=== PATIENT | female | born 1940 | race Two or more races ===

== ENCOUNTER 2019-02-01 10:37 | Inpatient (IN) | payer MEDICARE, OTHER ==
[2019-02-01] VITALS (48 sets, daily range): BP systolic 52–154; BP diastolic 36–89
[~2019-02-01] VITALS: Ht 167.6 cm; Wt 61.7 kg
[~2019-02-01 10:37] MED LIST: ALEN70TA3 PO; ARIP10TA9 PO; CITA20TA16 PO; DOCU-277 PO; LISI40TA4 PO; ZOLP5TAB2 PO
[2019-02-01 10:55] LABS: BASOPHILS % (AUTO) 0.1 % (0.0-2.0); HEMATOCRIT 41 % (33-45); HEMOGLOBIN 13.2 g/dL (11.5-14.8); LYMPHOCYTES # (AUTO) 1.9 /CMM (0.8-4.8); MEAN CORPUSCULAR HGB CONC 32 g/dl (31.0-36.0); MEAN CORPUSCULAR VOLUME 86 fL (82-100); MONOCYTES # (AUTO) 0.6 /CMM (0.1-1.30); MONOCYTES % (AUTO) 2.3 % (2.0-12.0); NEUTROPHILS # (AUTO) 24.4 /CMM (1.8-8.9); NEUTROPHILS % (AUTO) 90.6 % (43.0-81.0); PLATELET COUNT (AUTO) 334 /CMM (150-450); RED BLOOD CELL COUNT(AUTO) 4.79 MIL/uL (4.0-5.2); WHITE BLOOD COUNT (AUTO) 26.9 K/uL (4.3-11.0)
[2019-02-01] MEDS ORDERED: ETOMIDATE 2 MG/ML VIAL IV ONE (11:00)
[2019-02-01] MEDS ORDERED: IV NS 0.9% 1,000 ML BAG IV ONE ×2 (11:00→12:00)
[2019-02-01] MEDS ORDERED: ROCURONIUM BROMIDE 100 MG/10 ML VIAL IV ONE (11:00)
[2019-02-01 11:08] LABS: CALCIUM, SERUM 8.9 mg/dL (8.5-10.1); CARBON DIOXIDE 22 mmol/L (21-32); CHLORIDE 108 mmol/L (98-107); CREATININE 1.5 mg/dL (0.6-1.3); GLUCOSE 148 mg/dL (74-106); SODIUM SERUM 142 mmol/L (136-145); UREA NITROGEN, BLOOD 34 mg/dL (7-18)
[2019-02-01 11:21] LABS: ALANINE AMINOTRANSFERASE 9 U/L (12-78); ALBUMIN 3.1 g/dL (3.4-5.0); ALKALINE PHOSPHATASE 68 U/L (46-116); ASPARTATE AMINOTRANSFERASE 19 U/L (15-37); B-TYPE NATRIURETIC PEPTIDE 2140 PG/ML (0-125); BILIRUBIN,DIRECT 0.2 mg/dL (0.0-0.2); BILIRUBIN,TOTAL 0.6 mg/dL (0.2-1.0)
[2019-02-01] MEDS ORDERED: ATEN50TA PO (11:22)
[2019-02-01] MEDS ORDERED: LEVOFLOXACIN 750 MG /D5W 150ML 150 ML IV ONE ×2 (12:00→12:11)
[2019-02-01] MEDS ORDERED: PIPERACILLIN /TAZOBACTAM 3.375 G in IV D5W 50 ML IV ONE (12:00)
[2019-02-01] MEDS ORDERED: PIPERACILLIN /TAZOBACTAM 3.375 G VIAL IV ONE (12:11)
[2019-02-01 13:55] LABS: APPEARANCE,URINE Cloudy (CLEAR); BILIRUBIN,URINE Negative (NEGATIVE); BLOOD, URINE Moderate Ery/uL (NEGATIVE); COLOR,URINE Yellow (YELLOW); KETONES,URINE Negative (NEGATIVE); LEUKOCYTE ESTERASE ,URINE Large (NEGATIVE); NITRITE, URINE Negative (NEGATIVE); PROTEIN,URINE 100 mg/dl (NEGATIVE); UGLUCOSE Negative (NEGATIVE); UROBILINOGEN,URINE 0.2 EU/dL (0.2)
[2019-02-01 13:56] LABS: BACTERIA,URINE 2+ /HPF (None Seen); SQUAMOUS EPITHELIAL CELL,UR Few /HPF (None Seen); WBC,URINE 51-80 /HPF (0-3)
[2019-02-01] MEDS ORDERED: HYDROCODONE/APAP 5/325MG 1 EACH TABLET PO PRN (14:30)
[2019-02-01] MEDS ORDERED: ZOLPIDEM TARTRATE 5 MG TABLET PO PRN (14:30)
[2019-02-01] MEDS ORDERED: ONDANSETRON HCL/PF 4 MG/2 ML VIAL IVP PRN (14:30)
[2019-02-01] MEDS ORDERED: ACETAMINOPHEN 325 MG TABLET PO PRN (14:30)
[2019-02-01] MEDS ORDERED: MAGNESIUM HYDROXIDE 30 ML UDC PO PRN (14:30)
[2019-02-01] MEDS ORDERED: FEE PK DOSING 1 MIN EA MC ONE (14:35)
[2019-02-01 14:44] LABS: ABG BASE EXCESS -10.7 mmol/L; ABG OXYGEN SATURATION 92.9 % (92.0-98.5); ABG PCO2 40.2 mmHg (35.0-45.0); ABG PH 7.227 (7.350-7.450); ABG PO2 79.2 mmHg (75.0-100.0); AaDO2 593.6 mmHg; COHb 0.7 % (0.5-1.5); MetHb 0.1 % (0.0-1.5); O2Hb 92.2 % (94.0-97.0); PEEP,BG 5 cm H2O; SITE, ABG Right Radial; VT, ABG 400 mL
[2019-02-01] MEDS: HEPARIN SODIUM, PORCINE 5000 UNITS/1 ML VIAL SQ SCH ×2 (14:45→21:02)
[2019-02-01] MEDS: IV NS 0.9% 1,000 ML IV PRN (14:48)
[2019-02-01] MEDS ORDERED: IV NS 0.9% 1,000 ML IV PRN (15:00)
[2019-02-01] MEDS ORDERED: NOREPINEPHRINE 8 MG in IV D5W 500 ML IV PRN (15:00)
[2019-02-01] MEDS: NOREPINEPHRINE 8 MG in IV D5W 500 ML IV PRN (15:25)
[2019-02-01] MEDS: VANCOMYCIN 1 GM in IV D5W 250 ML IV SCH (15:31)
[2019-02-01] MEDS ORDERED: PROPOFOL 100 ML IV PRN (17:00)
[2019-02-01] MEDS: PROPOFOL 100 ML IV PRN ×2 (17:55→23:55)
[2019-02-01] MEDS: MORPHINE SULFATE INJ 2 MG/ML DISP.SYRIN IV PRN (19:22)
[2019-02-01] MEDS: PIPERACILLIN /TAZOBACTAM 2.25 G in IV D5W 50 ML IV SCH (20:57)
[2019-02-02] VITALS (97 sets, daily range): BP systolic 82–148; BP diastolic 40–99
[2019-02-02] MEDS: IV NS 0.9% 1,000 ML IV PRN ×2 (03:01→09:47)
[2019-02-02 04:47] LABS: BASOPHILS % (AUTO) 0.5 % (0.0-2.0); EOSINOPHILS % (AUTO) 0.1 % (0.0-6.0); HEMATOCRIT 35 % (33-45); HEMOGLOBIN 11.4 g/dL (11.5-14.8); LYMPHOCYTES # (AUTO) 0.8 /CMM (0.8-4.8); LYMPHOCYTES % (AUTO) 8.2 % (20.0-44.0); MEAN CORPUSCULAR HGB CONC 33 g/dl (31.0-36.0); MEAN CORPUSCULAR VOLUME 86 fL (82-100); MONOCYTES # (AUTO) 0.5 /CMM (0.1-1.30); MONOCYTES % (AUTO) 5.4 % (2.0-12.0); NEUTROPHILS % (AUTO) 85.8 % (43.0-81.0); PLATELET COUNT (AUTO) 249 /CMM (150-450); RED BLOOD CELL COUNT(AUTO) 4.06 MIL/uL (4.0-5.2); WHITE BLOOD COUNT (AUTO) 9.3 K/uL (4.3-11.0)
[2019-02-02] MEDS: PIPERACILLIN /TAZOBACTAM 2.25 G in IV D5W 50 ML IV SCH ×3 (04:58→19:40)
[2019-02-02 05:04] LABS: CALCIUM, SERUM 7.5 mg/dL (8.5-10.1); CARBON DIOXIDE 20 mmol/L (21-32); CHLORIDE 109 mmol/L (98-107); CREATININE 1.5 mg/dL (0.6-1.3); GLUCOSE 110 mg/dL (74-106); MAGNESIUM 1.4 mg/dL (1.8-2.4); PHOSPHORUS 3.4 mg/dL (2.5-4.9); POTASSIUM 3.6 mmol/L (3.5-5.1); SODIUM SERUM 140 mmol/L (136-145); UREA NITROGEN, BLOOD 36 mg/dL (7-18)
[2019-02-02 05:15] LABS: CHOLESTEROL 83 mg/dL (<200); HDL CHOLESTEROL 39 mg/dL (40-60); LDL 38 mg/dL (0-99); TRIGLYCERIDES 52 mg/dL (30-150)
[2019-02-02] MEDS: PROPOFOL 100 ML IV PRN ×2 (07:17→17:40)
[2019-02-02 08:40] LABS: ABG BASE EXCESS -8.8 mmol/L; ABG OXYGEN SATURATION 96.3 % (92.0-98.5); ABG PCO2 30.9 mmHg (35.0-45.0); ABG PH 7.332 (7.350-7.450); ABG PO2 85.1 mmHg (75.0-100.0); AaDO2 308.7 mmHg; COHb 0.4 % (0.5-1.5); MetHb 0.3 % (0.0-1.5); O2Hb 95.6 % (94.0-97.0); PEEP,BG 8 cm H2O; SITE, ABG Right Radial
[2019-02-02] MEDS: HEPARIN SODIUM, PORCINE 5000 UNITS/1 ML VIAL SQ SCH ×2 (08:45→21:32)
[2019-02-02] MEDS: Z GUARD REMEDY 2 OZ OINT TP PRN (08:46)
[2019-02-02] MEDS ORDERED: IV NS 0.9% 500 ML IV ONE (09:30)
[2019-02-02] MEDS ORDERED: HYDROGEL DRESSING 90 GM TUBE TP PRN (09:30)
[2019-02-02] MEDS: Magnesium 1GM/D5W 100ML PREMIX 100 ML IV SCH ×2 (09:59→11:00)
[2019-02-02] MEDS: HYDROGEL DRESSING 90 GM TUBE TP SCH (11:43)
[2019-02-02] MEDS: MORPHINE SULFATE INJ 2 MG/ML DISP.SYRIN IV PRN (12:39)
[2019-02-02] MEDS: VANCOMYCIN 1 GM in IV D5W 250 ML IV SCH (15:35)
[2019-02-02] MEDS: NOREPINEPHRINE 8 MG in IV D5W 500 ML IV PRN (15:36)
[2019-02-03] VITALS (44 sets, daily range): BP systolic 89–138; BP diastolic 42–83
[2019-02-03] MEDS: IV NS 0.9% 1,000 ML IV PRN ×3 (01:17→22:14)
[2019-02-03] MEDS: PROPOFOL 100 ML IV PRN (01:40)
[2019-02-03] MEDS: PIPERACILLIN /TAZOBACTAM 2.25 G in IV D5W 50 ML IV SCH ×2 (03:17→12:12)
[2019-02-03 04:28] LABS: CALCIUM, SERUM 7.6 mg/dL (8.5-10.1); CREATININE 1.2 mg/dL (0.6-1.3); MAGNESIUM 2.1 mg/dL (1.8-2.4); POTASSIUM 3.3 mmol/L (3.5-5.1)
[2019-02-03 08:36] LABS: ABG BASE EXCESS -6.9 mmol/L; ABG OXYGEN SATURATION 97.2 % (92.0-98.5); ABG PCO2 29.5 mmHg (35.0-45.0); ABG PH 7.381 (7.350-7.450); ABG PO2 102.2 mmHg (75.0-100.0); AaDO2 149.1 mmHg; COHb 0.3 % (0.5-1.5); MetHb 0.3 % (0.0-1.5); O2Hb 96.6 % (94.0-97.0); SITE, ABG Right Radial
[2019-02-03] MEDS: HYDROGEL DRESSING 90 GM TUBE TP SCH (08:42)
[2019-02-03] MEDS: POTASSIUM CL. PREMIX PERIPHER. 50 ML IV SCH ×2 (08:44→09:43)
[2019-02-03] MEDS: HEPARIN SODIUM, PORCINE 5000 UNITS/1 ML VIAL SQ SCH ×2 (08:45→21:05)
[2019-02-03 08:48] LABS: BASOPHILS % (AUTO) 0.2 % (0.0-2.0); EOSINOPHILS % (AUTO) 0.3 % (0.0-6.0); HEMATOCRIT 29 % (33-45); HEMOGLOBIN 9.7 g/dL (11.5-14.8); LYMPHOCYTES # (AUTO) 0.6 /CMM (0.8-4.8); LYMPHOCYTES % (AUTO) 5.8 % (20.0-44.0); MEAN CORPUSCULAR HGB CONC 34 g/dl (31.0-36.0); MEAN CORPUSCULAR VOLUME 84 fL (82-100); MONOCYTES # (AUTO) 0.5 /CMM (0.1-1.30); MONOCYTES % (AUTO) 4.9 % (2.0-12.0); NEUTROPHILS # (AUTO) 8.9 /CMM (1.8-8.9); NEUTROPHILS % (AUTO) 88.8 % (43.0-81.0); PLATELET COUNT (AUTO) 179 /CMM (150-450); RED BLOOD CELL COUNT(AUTO) 3.44 MIL/uL (4.0-5.2); WHITE BLOOD COUNT (AUTO) 10.1 K/uL (4.3-11.0)
[2019-02-03] MEDS ORDERED: HYDROCODONE/APAP 5/325MG 1 EACH TABLET GT PRN (11:48)
[2019-02-03] MEDS ORDERED: ZOLPIDEM TARTRATE 5 MG TABLET GT PRN (11:48)
[2019-02-03] MEDS ORDERED: PHARMACY TO CHANGE PO MEDS TO GT/NG XX PRN (12:00)
[2019-02-03] MEDS ORDERED: BISACODYL SUPP (10 MG) 10 MG/SUPP.RECT SUPP.RECT RC PRN (12:00)
[2019-02-03 19:43] LABS: OCCULT BLOOD STOOL NEGATIVE (NEGATIVE)
[2019-02-03] MEDS: CEFEPIME 1 GM in IV D5W 50 ML IV SCH (20:03)
[2019-02-03] MEDS: MAGNESIUM HYDROXIDE 30 ML UDC GT SCH (23:24)
[2019-02-04] VITALS (27 sets, daily range): BP systolic 101–150; BP diastolic 36–87
[2019-02-04 04:22] LABS: BASOPHILS % (AUTO) 0.1 % (0.0-2.0); HEMATOCRIT 31 % (33-45); HEMOGLOBIN 10.2 g/dL (11.5-14.8); LYMPHOCYTES # (AUTO) 0.8 /CMM (0.8-4.8); MEAN CORPUSCULAR HGB CONC 33 g/dl (31.0-36.0); MEAN CORPUSCULAR VOLUME 84 fL (82-100); MONOCYTES # (AUTO) 0.4 /CMM (0.1-1.30); MONOCYTES % (AUTO) 2.8 % (2.0-12.0); NEUTROPHILS # (AUTO) 11.8 /CMM (1.8-8.9); NEUTROPHILS % (AUTO) 91.1 % (43.0-81.0); PLATELET COUNT (AUTO) 171 /CMM (150-450); RED BLOOD CELL COUNT(AUTO) 3.69 MIL/uL (4.0-5.2); WHITE BLOOD COUNT (AUTO) 12.9 K/uL (4.3-11.0)
[2019-02-04 04:38] LABS: CALCIUM, SERUM 7.6 mg/dL (8.5-10.1); CREATININE 0.8 mg/dL (0.6-1.3); PHOSPHORUS 2.1 mg/dL (2.5-4.9); POTASSIUM 3.2 mmol/L (3.5-5.1)
[2019-02-04] MEDS ORDERED: POTASSIUM CHLORIDE 20 MEQ TAB.PRT.SR PO ONE (08:00)
[2019-02-04] MEDS ORDERED: NEUTRA PHOS 1 POWD.PACKET PO ONE (08:00)
[2019-02-04] MEDS: HEPARIN SODIUM, PORCINE 5000 UNITS/1 ML VIAL SQ SCH ×2 (08:19→21:01)
[2019-02-04] MEDS: CEFEPIME 1 GM in IV D5W 50 ML IV SCH ×2 (08:19→21:00)
[2019-02-04] MEDS: HYDROGEL DRESSING 90 GM TUBE TP SCH (08:20)
[2019-02-04] MEDS: Z GUARD REMEDY 2 OZ OINT TP PRN (08:20)
[2019-02-04] MEDS: IV NS 0.9% 1,000 ML IV PRN (08:33)
[2019-02-04 08:51] LABS: ABG BASE EXCESS -8.3 mmol/L; ABG OXYGEN SATURATION 98.1 % (92.0-98.5); ABG PCO2 25.3 mmHg (35.0-45.0); ABG PH 7.394 (7.350-7.450); ABG PO2 134.7 mmHg (75.0-100.0); AaDO2 121.4 mmHg; MetHb 0.4 % (0.0-1.5); O2Hb 97.7 % (94.0-97.0); SITE, ABG Right Radial
[2019-02-04 11:07] LABS: ABG BASE EXCESS -6.6 mmol/L; ABG OXYGEN SATURATION 96.7 % (92.0-98.5); ABG PCO2 26.4 mmHg (35.0-45.0); ABG PH 7.417 (7.350-7.450); AaDO2 90.9 mmHg; COHb 0.2 % (0.5-1.5); MetHb 0.2 % (0.0-1.5); O2Hb 96.3 % (94.0-97.0); PEEP,BG 5 cm H2O; SITE, ABG Right Radial; VT, ABG 450 mL
[2019-02-04] MEDS: IV D5/0.45 NACL 1,000 ML IV PRN ×2 (12:09→22:00)
[2019-02-04] MEDS: MAGNESIUM HYDROXIDE 30 ML UDC GT SCH (22:00)
[2019-02-05] VITALS (26 sets, daily range): BP systolic 102–161; BP diastolic 49–100
[2019-02-05 04:17] LABS: BASOPHILS % (AUTO) 0.1 % (0.0-2.0); EOSINOPHILS % (AUTO) 0.4 % (0.0-6.0); HEMATOCRIT 29 % (33-45); HEMOGLOBIN 9.9 g/dL (11.5-14.8); LYMPHOCYTES # (AUTO) 1.1 /CMM (0.8-4.8); LYMPHOCYTES % (AUTO) 9.8 % (20.0-44.0); MEAN CORPUSCULAR HGB CONC 34 g/dl (31.0-36.0); MEAN CORPUSCULAR VOLUME 84 fL (82-100); MONOCYTES # (AUTO) 0.7 /CMM (0.1-1.30); NEUTROPHILS # (AUTO) 9.3 /CMM (1.8-8.9); NEUTROPHILS % (AUTO) 83.7 % (43.0-81.0); PLATELET COUNT (AUTO) 172 /CMM (150-450); RED BLOOD CELL COUNT(AUTO) 3.48 MIL/uL (4.0-5.2); WHITE BLOOD COUNT (AUTO) 11.1 K/uL (4.3-11.0)
[2019-02-05 04:28] LABS: ALBUMIN 1.7 g/dL (3.4-5.0); ALKALINE PHOSPHATASE 45 U/L (46-116); ASPARTATE AMINOTRANSFERASE 18 U/L (15-37); BILIRUBIN,TOTAL 0.5 mg/dL (0.2-1.0); CALCIUM, SERUM 7.6 mg/dL (8.5-10.1); CARBON DIOXIDE 22 mmol/L (21-32); CHLORIDE 112 mmol/L (98-107); CREATININE 0.7 mg/dL (0.6-1.3); GLUCOSE 151 mg/dL (74-106); MAGNESIUM 1.9 mg/dL (1.8-2.4); POTASSIUM 3.3 mmol/L (3.5-5.1); SODIUM SERUM 142 mmol/L (136-145); TOTAL PROTEIN, SERUM 5.1 g/dL (6.4-8.2); UREA NITROGEN, BLOOD 21 mg/dL (7-18)
[2019-02-05 04:38] LABS: PHOSPHORUS 1.1 mg/dL (2.5-4.9)
[2019-02-05 04:41] LABS: ALANINE AMINOTRANSFERASE < 6 U/L (12-78)
[2019-02-05] MEDS: IV D5/0.45 NACL 1,000 ML IV PRN ×2 (07:51→17:19)
[2019-02-05] MEDS: CEFEPIME 1 GM in IV D5W 50 ML IV SCH ×2 (08:55→20:23)
[2019-02-05] MEDS: HEPARIN SODIUM, PORCINE 5000 UNITS/1 ML VIAL SQ SCH ×2 (08:56→20:24)
[2019-02-05] MEDS: HYDROGEL DRESSING 90 GM TUBE TP SCH (08:57)
[2019-02-05] MEDS ORDERED: NEUTRA PHOS 1 POWD.PACKET GT ONE (09:30)
[2019-02-05] MEDS ORDERED: POTASSIUM CHLORIDE 20 MEQ POWDER PACKET GT SCH (09:30)
[2019-02-05] MEDS: MORPHINE SULFATE INJ 2 MG/ML DISP.SYRIN IV PRN (17:14)
[2019-02-05] MEDS: MAGNESIUM HYDROXIDE 30 ML UDC GT SCH (21:24)
[2019-02-06] VITALS (25 sets, daily range): BP systolic 110–161; BP diastolic 50–95
[2019-02-06] MEDS: IV D5/0.45 NACL 1,000 ML IV PRN ×2 (03:56→15:05)
[2019-02-06 04:04] LABS: BASOPHILS % (AUTO) 0.4 % (0.0-2.0); EOSINOPHILS % (AUTO) 1.7 % (0.0-6.0); HEMATOCRIT 28 % (33-45); HEMOGLOBIN 9.2 g/dL (11.5-14.8); LYMPHOCYTES # (AUTO) 1.4 /CMM (0.8-4.8); LYMPHOCYTES % (AUTO) 21.6 % (20.0-44.0); MEAN CORPUSCULAR HGB CONC 33 g/dl (31.0-36.0); MEAN CORPUSCULAR VOLUME 84 fL (82-100); MONOCYTES # (AUTO) 0.9 /CMM (0.1-1.30); NEUTROPHILS % (AUTO) 62.3 % (43.0-81.0); PLATELET COUNT (AUTO) 163 /CMM (150-450); RED BLOOD CELL COUNT(AUTO) 3.31 MIL/uL (4.0-5.2); WHITE BLOOD COUNT (AUTO) 6.3 K/uL (4.3-11.0)
[2019-02-06 04:15] LABS: CALCIUM, SERUM 7.3 mg/dL (8.5-10.1); CARBON DIOXIDE 24 mmol/L (21-32); CHLORIDE 111 mmol/L (98-107); CREATININE 0.5 mg/dL (0.6-1.3); GLUCOSE 134 mg/dL (74-106); MAGNESIUM 1.6 mg/dL (1.8-2.4); PHOSPHORUS 1.4 mg/dL (2.5-4.9); POTASSIUM 3.4 mmol/L (3.5-5.1); SODIUM SERUM 141 mmol/L (136-145); UREA NITROGEN, BLOOD 15 mg/dL (7-18)
[2019-02-06] MEDS ORDERED: Sodium Phosphate 7.5 MMOL in IV D5W 100 ML IV ONE (08:30)
[2019-02-06] MEDS: Magnesium 1GM/D5W 100ML PREMIX 100 ML IV SCH ×2 (08:31→09:34)
[2019-02-06] MEDS: CEFEPIME 1 GM in IV D5W 50 ML IV SCH ×2 (08:31→20:55)
[2019-02-06] MEDS: HYDROGEL DRESSING 90 GM TUBE TP SCH (08:32)
[2019-02-06] MEDS: HEPARIN SODIUM, PORCINE 5000 UNITS/1 ML VIAL SQ SCH ×2 (08:33→21:02)
[2019-02-06] MEDS ORDERED: POTASSIUM CHLORIDE 20 MEQ POWDER PACKET NG SCH (09:30)
[2019-02-06 14:10] LABS: ABG OXYGEN SATURATION 97.3 % (92.0-98.5); ABG PCO2 27.6 mmHg (35.0-45.0); ABG PH 7.472 (7.350-7.450); ABG PO2 106.4 mmHg (75.0-100.0); AaDO2 75.1 mmHg; COHb 0.1 % (0.5-1.5); MetHb 0.4 % (0.0-1.5); O2Hb 96.8 % (94.0-97.0); SITE, ABG Right Radial; VENT MODE, BG CPAP 15 +5 30%
[2019-02-06] MEDS: MAGNESIUM HYDROXIDE 30 ML UDC GT SCH (21:00)
[2019-02-07] VITALS (33 sets, daily range): BP systolic 68–187; BP diastolic 38–99
[2019-02-07 04:25] LABS: BASOPHILS % (AUTO) 0.3 % (0.0-2.0); EOSINOPHILS % (AUTO) 2.3 % (0.0-6.0); HEMATOCRIT 30 % (33-45); HEMOGLOBIN 10.4 g/dL (11.5-14.8); LYMPHOCYTES # (AUTO) 1.4 /CMM (0.8-4.8); LYMPHOCYTES % (AUTO) 22.1 % (20.0-44.0); MEAN CORPUSCULAR HGB CONC 34 g/dl (31.0-36.0); MEAN CORPUSCULAR VOLUME 83 fL (82-100); MONOCYTES # (AUTO) 1.2 /CMM (0.1-1.30); NEUTROPHILS # (AUTO) 3.4 /CMM (1.8-8.9); NEUTROPHILS % (AUTO) 55.3 % (43.0-81.0); PLATELET COUNT (AUTO) 218 /CMM (150-450); RED BLOOD CELL COUNT(AUTO) 3.65 MIL/uL (4.0-5.2); WHITE BLOOD COUNT (AUTO) 6.2 K/uL (4.3-11.0)
[2019-02-07 04:35] LABS: ALANINE AMINOTRANSFERASE 9 U/L (12-78); ALBUMIN 1.7 g/dL (3.4-5.0); ALKALINE PHOSPHATASE 58 U/L (46-116); ASPARTATE AMINOTRANSFERASE 19 U/L (15-37); BILIRUBIN,TOTAL 0.4 mg/dL (0.2-1.0); CALCIUM, SERUM 7.5 mg/dL (8.5-10.1); CARBON DIOXIDE 26 mmol/L (21-32); CHLORIDE 109 mmol/L (98-107); CREATININE 0.5 mg/dL (0.6-1.3); GLUCOSE 121 mg/dL (74-106); MAGNESIUM 1.8 mg/dL (1.8-2.4); PHOSPHORUS 1.8 mg/dL (2.5-4.9); POTASSIUM 3.3 mmol/L (3.5-5.1); SODIUM SERUM 141 mmol/L (136-145); TOTAL PROTEIN, SERUM 5.5 g/dL (6.4-8.2); UREA NITROGEN, BLOOD 9 mg/dL (7-18)
[2019-02-07 06:19] LABS: BAND % (MANUAL) 1 % (0.0-5.0); EOSINOPHILS % (MANUAL) 2 % (0-4); LYMPHOCYTES % (MANUAL) 34 % (16-48); MONOCYTES % (MANUAL) 19 % (0-11.0); NEUTROPHILS % (MANUAL) 44 (42-76)
[2019-02-07] MEDS: IV D5/0.45 NACL 1,000 ML IV PRN (06:20)
[2019-02-07] MEDS: CEFEPIME 1 GM in IV D5W 50 ML IV SCH ×2 (09:15→21:00)
[2019-02-07] MEDS: HEPARIN SODIUM, PORCINE 5000 UNITS/1 ML VIAL SQ SCH ×2 (09:15→21:01)
[2019-02-07] MEDS: HYDROGEL DRESSING 90 GM TUBE TP SCH (09:15)
[2019-02-07] MEDS ORDERED: POTASSIUM CHLORIDE 20 MEQ POWDER PACKET GT SCH (09:30)
[2019-02-07] MEDS ORDERED: NEUTRA PHOS 1 POWD.PACKET GT ONE (11:30)
[2019-02-07] MEDS: JEVITY 1.2 CAL 1,000 ML BOTTLE GT PRN (16:09)
[2019-02-07] MEDS: MAGNESIUM HYDROXIDE 30 ML UDC GT SCH (21:00)
[2019-02-07] MEDS: IV NS 0.9% 250 ML IV PRN (21:00)
[2019-02-08] VITALS (24 sets, daily range): BP systolic 90–130; BP diastolic 33–94
[2019-02-08 04:27] LABS: BASOPHILS % (AUTO) 0.4 % (0.0-2.0); EOSINOPHILS % (AUTO) 2.9 % (0.0-6.0); HEMATOCRIT 28 % (33-45); HEMOGLOBIN 9.3 g/dL (11.5-14.8); LYMPHOCYTES # (AUTO) 1.5 /CMM (0.8-4.8); LYMPHOCYTES % (AUTO) 21.4 % (20.0-44.0); MEAN CORPUSCULAR HGB CONC 34 g/dl (31.0-36.0); MEAN CORPUSCULAR VOLUME 84 fL (82-100); MONOCYTES % (AUTO) 14.7 % (2.0-12.0); NEUTROPHILS # (AUTO) 4.2 /CMM (1.8-8.9); NEUTROPHILS % (AUTO) 60.6 % (43.0-81.0); PLATELET COUNT (AUTO) 243 /CMM (150-450); WHITE BLOOD COUNT (AUTO) 6.9 K/uL (4.3-11.0)
[2019-02-08 04:41] LABS: CALCIUM, SERUM 7.4 mg/dL (8.5-10.1); CARBON DIOXIDE 29 mmol/L (21-32); CHLORIDE 111 mmol/L (98-107); CREATININE 0.5 mg/dL (0.6-1.3); GLUCOSE 130 mg/dL (74-106); MAGNESIUM 1.8 mg/dL (1.8-2.4); PHOSPHORUS 2.1 mg/dL (2.5-4.9); POTASSIUM 3.9 mmol/L (3.5-5.1); SODIUM SERUM 145 mmol/L (136-145); UREA NITROGEN, BLOOD 9 mg/dL (7-18)
[2019-02-08] MEDS: CEFEPIME 1 GM in IV D5W 50 ML IV SCH ×2 (09:01→20:30)
[2019-02-08] MEDS: HEPARIN SODIUM, PORCINE 5000 UNITS/1 ML VIAL SQ SCH (09:02)
[2019-02-08] MEDS: HYDROGEL DRESSING 90 GM TUBE TP SCH (09:02)
[2019-02-08] MEDS: Z GUARD REMEDY 2 OZ OINT TP PRN (09:03)
[2019-02-08] MEDS ORDERED: NEUTRA PHOS 1 POWD.PACKET GT ONE (11:00)
[2019-02-08] MEDS: JEVITY 1.2 CAL 1,000 ML BOTTLE GT PRN (16:54)
[2019-02-08] MEDS: MAGNESIUM HYDROXIDE 30 ML UDC GT SCH (21:02)
[2019-02-09] VITALS (27 sets, daily range): BP systolic 42–134; BP diastolic 23–88
[2019-02-09 05:08] LABS: BASOPHILS % (AUTO) 0.2 % (0.0-2.0); EOSINOPHILS % (AUTO) 2.9 % (0.0-6.0); HEMATOCRIT 27 % (33-45); LYMPHOCYTES # (AUTO) 1.3 /CMM (0.8-4.8); LYMPHOCYTES % (AUTO) 17.3 % (20.0-44.0); MEAN CORPUSCULAR HGB CONC 33 g/dl (31.0-36.0); MEAN CORPUSCULAR VOLUME 84 fL (82-100); MONOCYTES # (AUTO) 0.8 /CMM (0.1-1.30); MONOCYTES % (AUTO) 11.3 % (2.0-12.0); NEUTROPHILS # (AUTO) 5.1 /CMM (1.8-8.9); NEUTROPHILS % (AUTO) 68.3 % (43.0-81.0); PLATELET COUNT (AUTO) 295 /CMM (150-450); WHITE BLOOD COUNT (AUTO) 7.5 K/uL (4.3-11.0)
[2019-02-09 05:26] LABS: CALCIUM, SERUM 7.5 mg/dL (8.5-10.1); CARBON DIOXIDE 30 mmol/L (21-32); CHLORIDE 108 mmol/L (98-107); CREATININE 0.5 mg/dL (0.6-1.3); GLUCOSE 129 mg/dL (74-106); MAGNESIUM 1.7 mg/dL (1.8-2.4); PHOSPHORUS 3.9 mg/dL (2.5-4.9); POTASSIUM 3.8 mmol/L (3.5-5.1); SODIUM SERUM 142 mmol/L (136-145); UREA NITROGEN, BLOOD 11 mg/dL (7-18)
[2019-02-09] MEDS: CEFEPIME 1 GM in IV D5W 50 ML IV SCH ×2 (09:16→21:40)
[2019-02-09] MEDS: Z GUARD REMEDY 2 OZ OINT TP PRN (09:17)
[2019-02-09] MEDS: HYDROGEL DRESSING 90 GM TUBE TP SCH (09:17)
[2019-02-09] MEDS: Magnesium 1GM/D5W 100ML PREMIX 100 ML IV SCH ×2 (10:25→11:27)
[2019-02-09] MEDS: ACETAMINOPHEN 650 MG/20.3 ML UDC GT PRN (14:49)
[2019-02-09] MEDS: MAGNESIUM HYDROXIDE 30 ML UDC GT SCH (21:40)
[2019-02-10] VITALS (25 sets, daily range): BP systolic 103–144; BP diastolic 42–100
[2019-02-10 04:12] LABS: BASOPHILS % (AUTO) 0.5 % (0.0-2.0); EOSINOPHILS % (AUTO) 2.5 % (0.0-6.0); HEMATOCRIT 29 % (33-45); HEMOGLOBIN 9.6 g/dL (11.5-14.8); LYMPHOCYTES # (AUTO) 1.4 /CMM (0.8-4.8); LYMPHOCYTES % (AUTO) 16.1 % (20.0-44.0); MEAN CORPUSCULAR HGB CONC 33 g/dl (31.0-36.0); MEAN CORPUSCULAR VOLUME 85 fL (82-100); MONOCYTES # (AUTO) 0.8 /CMM (0.1-1.30); MONOCYTES % (AUTO) 9.6 % (2.0-12.0); NEUTROPHILS # (AUTO) 6.1 /CMM (1.8-8.9); NEUTROPHILS % (AUTO) 71.3 % (43.0-81.0); PLATELET COUNT (AUTO) 350 /CMM (150-450); RED BLOOD CELL COUNT(AUTO) 3.37 MIL/uL (4.0-5.2); WHITE BLOOD COUNT (AUTO) 8.6 K/uL (4.3-11.0)
[2019-02-10 04:28] LABS: CALCIUM, SERUM 7.8 mg/dL (8.5-10.1); CARBON DIOXIDE 34 mmol/L (21-32); CHLORIDE 107 mmol/L (98-107); CREATININE 0.5 mg/dL (0.6-1.3); GLUCOSE 111 mg/dL (74-106); MAGNESIUM 2.1 mg/dL (1.8-2.4); PHOSPHORUS 3.5 mg/dL (2.5-4.9); POTASSIUM 4.1 mmol/L (3.5-5.1); SODIUM SERUM 143 mmol/L (136-145); UREA NITROGEN, BLOOD 13 mg/dL (7-18)
[2019-02-10] MEDS: HYDROGEL DRESSING 90 GM TUBE TP SCH (08:03)
[2019-02-10] MEDS: CEFEPIME 1 GM in IV D5W 50 ML IV SCH ×2 (08:04→21:24)
[2019-02-10] MEDS: IV NS 0.9% 250 ML IV PRN (08:05)
[2019-02-10] MEDS ORDERED: JEVITY 1.2 CAL 1,000 ML BOTTLE GT PRN (12:00)
[2019-02-10] MEDS: Z GUARD REMEDY 2 OZ OINT TP PRN (15:36)
[2019-02-10] MEDS: JEVITY 1.2 CAL 1,000 ML BOTTLE GT PRN (16:51)
[2019-02-10] MEDS: MAGNESIUM HYDROXIDE 30 ML UDC GT SCH (21:23)
[2019-02-11] VITALS (25 sets, daily range): BP systolic 101–137; BP diastolic 44–84
[2019-02-11 03:56] LABS: BASOPHILS # (AUTO) 0.1 /CMM (0.0-0.2); BASOPHILS % (AUTO) 0.6 % (0.0-2.0); EOSINOPHILS % (AUTO) 2.7 % (0.0-6.0); HEMATOCRIT 28 % (33-45); HEMOGLOBIN 9.4 g/dL (11.5-14.8); LYMPHOCYTES # (AUTO) 1.6 /CMM (0.8-4.8); MEAN CORPUSCULAR HGB CONC 33 g/dl (31.0-36.0); MEAN CORPUSCULAR VOLUME 85 fL (82-100); MONOCYTES # (AUTO) 0.9 /CMM (0.1-1.30); MONOCYTES % (AUTO) 10.4 % (2.0-12.0); NEUTROPHILS # (AUTO) 5.7 /CMM (1.8-8.9); NEUTROPHILS % (AUTO) 67.3 % (43.0-81.0); PLATELET COUNT (AUTO) 382 /CMM (150-450); RED BLOOD CELL COUNT(AUTO) 3.33 MIL/uL (4.0-5.2); WHITE BLOOD COUNT (AUTO) 8.5 K/uL (4.3-11.0)
[2019-02-11 04:00] LABS: CALCIUM, SERUM 7.9 mg/dL (8.5-10.1); CREATININE 0.6 mg/dL (0.6-1.3); POTASSIUM 4.3 mmol/L (3.5-5.1)
[2019-02-11] MEDS: HYDROGEL DRESSING 90 GM TUBE TP SCH (08:14)
[2019-02-11] MEDS: CEFEPIME 1 GM in IV D5W 50 ML IV SCH ×2 (08:17→20:23)
[2019-02-11] MEDS: JEVITY 1.2 CAL 1,000 ML BOTTLE GT PRN (09:49)
[2019-02-11] MEDS: ACETAMINOPHEN 650 MG/20.3 ML UDC GT PRN (13:50)
[2019-02-11] MEDS: MAGNESIUM HYDROXIDE 30 ML UDC GT SCH (22:20)
[2019-02-12] VITALS (25 sets, daily range): BP systolic 100–140; BP diastolic 48–123
[2019-02-12] MEDS: JEVITY 1.2 CAL 1,000 ML BOTTLE GT PRN ×2 (03:17→18:50)
[2019-02-12 04:36] LABS: BASOPHILS % (AUTO) 0.5 % (0.0-2.0); EOSINOPHILS % (AUTO) 1.9 % (0.0-6.0); HEMATOCRIT 27 % (33-45); HEMOGLOBIN 8.8 g/dL (11.5-14.8); LYMPHOCYTES # (AUTO) 1.3 /CMM (0.8-4.8); LYMPHOCYTES % (AUTO) 13.9 % (20.0-44.0); MEAN CORPUSCULAR HGB CONC 33 g/dl (31.0-36.0); MEAN CORPUSCULAR VOLUME 86 fL (82-100); MONOCYTES # (AUTO) 0.8 /CMM (0.1-1.30); MONOCYTES % (AUTO) 8.4 % (2.0-12.0); NEUTROPHILS # (AUTO) 6.8 /CMM (1.8-8.9); NEUTROPHILS % (AUTO) 75.3 % (43.0-81.0); PLATELET COUNT (AUTO) 420 /CMM (150-450); RED BLOOD CELL COUNT(AUTO) 3.15 MIL/uL (4.0-5.2); WHITE BLOOD COUNT (AUTO) 9.1 K/uL (4.3-11.0)
[2019-02-12 04:45] LABS: CALCIUM, SERUM 7.6 mg/dL (8.5-10.1); CREATININE 0.6 mg/dL (0.6-1.3); POTASSIUM 4.5 mmol/L (3.5-5.1)
[2019-02-12] MEDS: CEFEPIME 1 GM in IV D5W 50 ML IV SCH ×2 (08:11→20:22)
[2019-02-12] MEDS: HYDROGEL DRESSING 90 GM TUBE TP SCH (08:11)
[2019-02-12] MEDS: IV NS 0.9% 250 ML IV PRN (09:33)
[2019-02-12 11:24] LABS: ABG BASE EXCESS 5.5 mmol/L; ABG OXYGEN SATURATION 96.7 % (92.0-98.5); ABG PCO2 34.3 mmHg (35.0-45.0); ABG PH 7.534 (7.350-7.450); ABG PO2 90.5 mmHg (75.0-100.0); AaDO2 119.2 mmHg; COHb 0.3 % (0.5-1.5); MetHb 0.4 % (0.0-1.5); SITE, ABG Right Radial; VENT MODE, BG T-PIECE 35%
[2019-02-12] MEDS: MAGNESIUM HYDROXIDE 30 ML UDC GT SCH (20:22)
[2019-02-13] VITALS (28 sets, daily range): BP systolic 93–135; BP diastolic 26–89
[2019-02-13 04:23] LABS: BASOPHILS # (AUTO) 0.1 /CMM (0.0-0.2); BASOPHILS % (AUTO) 0.6 % (0.0-2.0); EOSINOPHILS % (AUTO) 2.2 % (0.0-6.0); HEMATOCRIT 27 % (33-45); HEMOGLOBIN 8.8 g/dL (11.5-14.8); LYMPHOCYTES # (AUTO) 1.8 /CMM (0.8-4.8); LYMPHOCYTES % (AUTO) 18.7 % (20.0-44.0); MEAN CORPUSCULAR HGB CONC 33 g/dl (31.0-36.0); MEAN CORPUSCULAR VOLUME 86 fL (82-100); MONOCYTES % (AUTO) 10.1 % (2.0-12.0); NEUTROPHILS # (AUTO) 6.6 /CMM (1.8-8.9); NEUTROPHILS % (AUTO) 68.4 % (43.0-81.0); PLATELET COUNT (AUTO) 427 /CMM (150-450); RED BLOOD CELL COUNT(AUTO) 3.16 MIL/uL (4.0-5.2); WHITE BLOOD COUNT (AUTO) 9.6 K/uL (4.3-11.0)
[2019-02-13 04:38] LABS: CREATININE 0.6 mg/dL (0.6-1.3); POTASSIUM 4.4 mmol/L (3.5-5.1)
[2019-02-13] MEDS: CEFEPIME 1 GM in IV D5W 50 ML IV SCH ×2 (08:14→21:06)
[2019-02-13] MEDS: MORPHINE SULFATE INJ 2 MG/ML DISP.SYRIN IV PRN (10:13)
[2019-02-13] MEDS ORDERED: DC PROPOFOL WHEN EXTUBATED XX PRN (11:30)
[2019-02-13] MEDS: HYDROGEL DRESSING 90 GM TUBE TP SCH (11:50)
[2019-02-13] MEDS: JEVITY 1.2 CAL 1,000 ML BOTTLE GT PRN (17:19)
[2019-02-13] MEDS: MAGNESIUM HYDROXIDE 30 ML UDC GT SCH (21:06)
[2019-02-14] VITALS (20 sets, daily range): BP systolic 86–133; BP diastolic 20–81
[2019-02-14 04:49] LABS: BASOPHILS # (AUTO) 0.1 /CMM (0.0-0.2); BASOPHILS % (AUTO) 0.7 % (0.0-2.0); EOSINOPHILS % (AUTO) 1.9 % (0.0-6.0); HEMATOCRIT 26 % (33-45); HEMOGLOBIN 8.6 g/dL (11.5-14.8); LYMPHOCYTES # (AUTO) 1.7 /CMM (0.8-4.8); LYMPHOCYTES % (AUTO) 17.8 % (20.0-44.0); MEAN CORPUSCULAR HGB CONC 33 g/dl (31.0-36.0); MEAN CORPUSCULAR VOLUME 85 fL (82-100); MONOCYTES # (AUTO) 1.1 /CMM (0.1-1.30); MONOCYTES % (AUTO) 11.4 % (2.0-12.0); NEUTROPHILS # (AUTO) 6.3 /CMM (1.8-8.9); NEUTROPHILS % (AUTO) 68.2 % (43.0-81.0); PLATELET COUNT (AUTO) 453 /CMM (150-450); RED BLOOD CELL COUNT(AUTO) 3.08 MIL/uL (4.0-5.2); WHITE BLOOD COUNT (AUTO) 9.3 K/uL (4.3-11.0)
[2019-02-14 05:19] LABS: CREATININE 0.6 mg/dL (0.6-1.3); POTASSIUM 4.5 mmol/L (3.5-5.1)
[2019-02-14] MEDS: CEFEPIME 1 GM in IV D5W 50 ML IV SCH ×2 (08:03→20:49)
[2019-02-14] MEDS: HYDROGEL DRESSING 90 GM TUBE TP SCH (08:28)
[2019-02-14] MEDS: IV NS 0.9% 250 ML IV PRN ×2 (08:31→21:37)
[2019-02-14] MEDS: JEVITY 1.2 CAL 1,000 ML BOTTLE GT PRN (18:34)
[2019-02-14] MEDS: MAGNESIUM HYDROXIDE 30 ML UDC GT SCH (21:20)
[2019-02-15] VITALS (7 sets, daily range): BP systolic 98–137; BP diastolic 40–100
[2019-02-15] MEDS: CEFEPIME 1 GM in IV D5W 50 ML IV SCH ×2 (08:51→20:03)
[2019-02-15] MEDS: HYDROGEL DRESSING 90 GM TUBE TP SCH (08:52)
[2019-02-15] MEDS: JEVITY 1.2 CAL 1,000 ML BOTTLE GT PRN (11:05)
[2019-02-15 11:47] LABS: BASOPHILS # (AUTO) 0.1 /CMM (0.0-0.2); BASOPHILS % (AUTO) 0.5 % (0.0-2.0); HEMATOCRIT 28 % (33-45); HEMOGLOBIN 9.2 g/dL (11.5-14.8); LYMPHOCYTES # (AUTO) 1.5 /CMM (0.8-4.8); LYMPHOCYTES % (AUTO) 12.9 % (20.0-44.0); MEAN CORPUSCULAR HGB CONC 33 g/dl (31.0-36.0); MEAN CORPUSCULAR VOLUME 85 fL (82-100); MONOCYTES # (AUTO) 1.3 /CMM (0.1-1.30); MONOCYTES % (AUTO) 11.4 % (2.0-12.0); NEUTROPHILS # (AUTO) 8.8 /CMM (1.8-8.9); NEUTROPHILS % (AUTO) 74.2 % (43.0-81.0); PLATELET COUNT (AUTO) 523 /CMM (150-450); RED BLOOD CELL COUNT(AUTO) 3.28 MIL/uL (4.0-5.2); WHITE BLOOD COUNT (AUTO) 11.8 K/uL (4.3-11.0)
[2019-02-15 12:34] LABS: CALCIUM, SERUM 8.2 mg/dL (8.5-10.1); CREATININE 0.6 mg/dL (0.6-1.3); POTASSIUM 4.7 mmol/L (3.5-5.1)
[2019-02-15] MEDS: MAGNESIUM HYDROXIDE 30 ML UDC GT SCH (21:04)
[2019-02-16] VITALS: BP 111/42
[2019-02-16 04:00] VITALS: BP 101/36
[2019-02-16 06:44] LABS: BASOPHILS % (AUTO) 0.5 % (0.0-2.0); EOSINOPHILS % (AUTO) 2.3 % (0.0-6.0); HEMATOCRIT 26 % (33-45); HEMOGLOBIN 8.6 g/dL (11.5-14.8); LYMPHOCYTES # (AUTO) 1.5 /CMM (0.8-4.8); MEAN CORPUSCULAR HGB CONC 33 g/dl (31.0-36.0); MEAN CORPUSCULAR VOLUME 85 fL (82-100); MONOCYTES # (AUTO) 1.1 /CMM (0.1-1.30); MONOCYTES % (AUTO) 12.9 % (2.0-12.0); NEUTROPHILS # (AUTO) 5.4 /CMM (1.8-8.9); NEUTROPHILS % (AUTO) 66.3 % (43.0-81.0); PLATELET COUNT (AUTO) 457 /CMM (150-450); RED BLOOD CELL COUNT(AUTO) 3.08 MIL/uL (4.0-5.2); WHITE BLOOD COUNT (AUTO) 8.2 K/uL (4.3-11.0)
[2019-02-16 07:02] LABS: CALCIUM, SERUM 8.2 mg/dL (8.5-10.1); CREATININE 0.6 mg/dL (0.6-1.3); POTASSIUM 4.6 mmol/L (3.5-5.1)
[2019-02-16 08:00] VITALS: BP 136/82
[2019-02-16] MEDS: ACETAMINOPHEN 650 MG/20.3 ML UDC GT PRN (09:11)
[2019-02-16] MEDS: HYDROGEL DRESSING 90 GM TUBE TP SCH (09:11)
[2019-02-16] MEDS: CEFEPIME 1 GM in IV D5W 50 ML IV SCH ×2 (09:12→21:03)
[2019-02-16 11:21] LABS: ABG BASE EXCESS 6.3 mmol/L; ABG OXYGEN SATURATION 98.4 % (92.0-98.5); ABG PCO2 25.3 mmHg (35.0-45.0); ABG PH 7.647 (7.350-7.450); ABG PO2 171.2 mmHg (75.0-100.0); AaDO2 156.8 mmHg; COHb 0.3 % (0.5-1.5); MetHb 0.6 % (0.0-1.5); O2Hb 97.5 % (94.0-97.0); SITE, ABG Right Radial; VENT MODE, BG 6L NC
[2019-02-16 12:00] VITALS: BP 102/34
[2019-02-16] MEDS: JEVITY 1.2 CAL 1,000 ML BOTTLE GT PRN (14:11)
[2019-02-16 16:00] VITALS: BP 139/54
[2019-02-16] MEDS: ACETYLCYSTEINE 10% SOLN 400 MG/4 ML VIAL NEB SCH ×2 (16:00→23:37)
[2019-02-16] MEDS: IPRATROPIUM NEB FS 0.5 MG/2.5 ML AMPUL.NEB NEB SCH ×3 (16:00→23:36)
[2019-02-16 20:00] VITALS: BP 161/61
[2019-02-16] MEDS: ALBUTEROL HALF STRENGTH 1.25 MG/3 ML VIAL.NEB NEB SCH ×2 (20:02→23:37)
[2019-02-16] MEDS: MAGNESIUM HYDROXIDE 30 ML UDC GT SCH (21:04)
[2019-02-17] VITALS: BP 154/76
[2019-02-17] MEDS: IPRATROPIUM NEB FS 0.5 MG/2.5 ML AMPUL.NEB NEB SCH ×4 (03:33→15:27)
[2019-02-17] MEDS: ALBUTEROL HALF STRENGTH 1.25 MG/3 ML VIAL.NEB NEB SCH ×4 (03:33→15:27)
[2019-02-17 04:00] VITALS: BP 131/50
[2019-02-17 07:07] LABS: BASOPHILS # (AUTO) 0.1 /CMM (0.0-0.2); BASOPHILS % (AUTO) 0.9 % (0.0-2.0); EOSINOPHILS % (AUTO) 1.3 % (0.0-6.0); HEMATOCRIT 27 % (33-45); HEMOGLOBIN 8.8 g/dL (11.5-14.8); LYMPHOCYTES # (AUTO) 1.6 /CMM (0.8-4.8); LYMPHOCYTES % (AUTO) 17.1 % (20.0-44.0); MEAN CORPUSCULAR HGB CONC 33 g/dl (31.0-36.0); MEAN CORPUSCULAR VOLUME 85 fL (82-100); MONOCYTES # (AUTO) 1.3 /CMM (0.1-1.30); NEUTROPHILS # (AUTO) 6.2 /CMM (1.8-8.9); NEUTROPHILS % (AUTO) 66.7 % (43.0-81.0); PLATELET COUNT (AUTO) 479 /CMM (150-450); RED BLOOD CELL COUNT(AUTO) 3.15 MIL/uL (4.0-5.2); WHITE BLOOD COUNT (AUTO) 9.3 K/uL (4.3-11.0)
[2019-02-17 07:17] LABS: CALCIUM, SERUM 8.1 mg/dL (8.5-10.1); CREATININE 0.6 mg/dL (0.6-1.3); POTASSIUM 4.7 mmol/L (3.5-5.1)
[2019-02-17] MEDS: ACETYLCYSTEINE 10% SOLN 400 MG/4 ML VIAL NEB SCH ×2 (07:22→15:27)
[2019-02-17 08:00] VITALS: BP 116/65
[2019-02-17] MEDS: CEFEPIME 1 GM in IV D5W 50 ML IV SCH (09:11)
[2019-02-17] MEDS: HYDROGEL DRESSING 90 GM TUBE TP SCH (09:11)
[2019-02-17 16:00] VITALS: BP 106/37
== END 2019-02-17 20:22 | disposition left against medical advice (07) | DRG 870 ==
LOC: ER 10:42 → ICU 11:41 → TELE-TD 02-14 15:05 → TELE1 02-14 17:02 → MEDSG1 02-17 10:39
PROVIDERS: ADMIT Nurse Practitioner Acute Care; ATTEND Nurse Practitioner Acute Care
PROC: 5A1955Z Respiratory Ventilation, Greater than 96 Consecutive Hours (ICD-10-PCS; principal; 2019-02-01)
PROC: 02HV33Z Insertion of Infusion Device into Superior Vena Cava, Percutaneous Approach (ICD-10-PCS; 2019-02-01)
PROC: B548ZZA Ultrasonography of Superior Vena Cava, Guidance (ICD-10-PCS; 2019-02-01)
DX: A41.89 Other specified sepsis (principal); J69.0 Pneumonitis due to inhalation of food and vomit; J96.02 Acute respiratory failure with hypercapnia; R53.2 Functional quadriplegia; J96.01 Acute respiratory failure with hypoxia; G92 Toxic encephalopathy; N17.0 Acute kidney failure with tubular necrosis; R65.21 Severe sepsis with septic shock; J90 Pleural effusion, not elsewhere classified; N39.0 Urinary tract infection, site not specified; J98.11 Atelectasis; E87.3 Alkalosis; R65.20 Severe sepsis without septic shock; B96.4 Proteus (mirabilis) (morganii) as the cause of diseases classified elsewhere; F03.90 Unspecified dementia, unspecified severity, without behavioral disturbance, psychotic disturbance, mood disturbance, and anxiety; Z90.12 Acquired absence of left breast and nipple; Z86.73 Personal history of transient ischemic attack (TIA), and cerebral infarction without residual deficits; Z85.3 Personal history of malignant neoplasm of breast; Z66 Do not resuscitate; I70.0 Atherosclerosis of aorta; I10 Essential (primary) hypertension; E86.0 Dehydration; E16.2 Hypoglycemia, unspecified; D64.9 Anemia, unspecified; Z79.899 Other long term (current) drug therapy; M85.80 Other specified disorders of bone density and structure, unspecified site; G93.89 Other specified disorders of brain; I67.2 Cerebral atherosclerosis
CPT/HCPCS: 31720; 36415; 36600; 70450-TC; 71045-TC; 76604-TC; 80048-TC; 80053-TC; 80061-TC; 80076-TC; 81000-TC; 82272-TC; 82803-TC; 82962-TC; 83605-TC; 83735-TC; 83880; 84100-TC; 84484-TC; 85025-TC; 85730-TC; 87040-TC; 87070-TC; 87081-TC; 87086-TC; 87186-TC; 92611-TC; 93930-TC; 94002-TC; 94003-TC; 94640-TC; 94664-TC; 94760-TC; 94762-TC; 94799-TC; 99082-TC; A6248; A6253; A9563; C1751; G0378; J0692; J1644; J1956; J2270; J2543; J3370; J3475; J3480; J3490; J7030; J7040; J7050; J7060